=== PATIENT | male | born 1965 | race Caucasian/White ===

== ENCOUNTER 2024-06-16 22:04 | Emergency (ER) | payer OTHER ==
[~2024-06-16] VITALS: Ht 180.3 cm; Wt 105.2 kg
[2024-06-16] MEDS ORDERED: GABAPENTIN100 M2 PO (22:19)
[2024-06-16] MEDS ORDERED: PRAVASTATIN SOD40 MG PO (22:19)
[2024-06-16] MEDS ORDERED: ESCITALOPRAM OX20 MG PO (22:19)
[2024-06-16] MEDS ORDERED: LOSARTAN POTASS50 M1 PO (22:19)
[2024-06-16] MEDS ORDERED: FAMOTIDINE20 M1 PO (22:19)
[2024-06-16] MEDS ORDERED: TRAZODONE50 MG PO (22:20)
[2024-06-16 22:58] LABS: BASO % 0.4 % (0.0-1.0); EOS # 0.6 10*3/uL (0.0-0.4); EOS % 5.5 % (1.0-4.0); HEMATOCRIT 44.3 % (42.0-52.0); MEAN CELL VOLUME 98.9 fl (80.0-94.0); MEAN CORPUSCULAR HGB 32.6 pg (27.0-31.0); MEAN PLATELET VOLUME 9.8 fl (9.6-12.3); MONO # 0.9 10*3/uL (0.1-1.0); MONO % 8.5 % (3.0-9.0); NEUT # 6.7 10*3/uL (2.3-7.9); NEUT % 66.5 % (47.0-73.0); PLATELET COUNT AUTOMATED 236 10*3/uL (130-400); RED BLOOD COUNT 4.48 10*6/uL (4.50-5.90); WHITE BLOOD COUNT 10.1 10*3/uL (4.8-10.8)
[2024-06-16 23:16] LABS: BUN 13 mg/dl (9-23); CHLORIDE 104 mmol/L (98-107); POTASSIUM 4.2 mmol/L (3.4-5.1)
[2024-06-17] MEDS ORDERED: Dexamethasone Sodium Phospha 20 MG/5 ML VIAL IM ONE (00:05)
[2024-06-17] MEDS ORDERED: AVPAK AZITHROM250 MG PO (00:05)
[2024-06-17] MEDS ORDERED: MEDROL DOSEPAK4 MG PO (00:05)
== END 2024-06-17 00:24 | disposition home or self-care (01) ==
LOC: ED 22:04
PROVIDERS: Internal Medicine
DX: J40 Bronchitis, not specified as acute or chronic (principal); Z20.822 Contact with and (suspected) exposure to COVID-19; I10 Essential (primary) hypertension; Z79.899 Other long term (current) drug therapy